=== PATIENT | male | born 1935 | race Caucasian/White ===

== ENCOUNTER 2023-12-06 | Outpatient (CLI) | payer MEDICARE, OTHER | END 2023-12-06 09:20 | disposition home or self-care (01) | DX: Z01.818 Encounter for other preprocedural examination (principal); M16.11 Unilateral primary osteoarthritis, right hip ==

== ENCOUNTER 2023-12-11 05:58 | Observation (INO) | payer MEDICARE, OTHER ==
[2023-12-06 09:45] VITALS: BMI 25.7
[2023-12-11] MEDS ORDERED: Tranexamic Acid 1,000 MG/10 ML VIAL ONE (06:09)
[2023-12-11] MEDS ORDERED: Sodium Chloride 0.9% 100 ML ONE ×3 (06:09→07:43)
[2023-12-11] MEDS ORDERED: Vancomycin (BATCH) 1.5 GM/300 ML BAG ONE (06:09)
[2023-12-11] MEDS ORDERED: fentaNYL PF 100 MCG/2 ML SYRINGE ONE ×2 (06:18→07:12)
[2023-12-11] MEDS ORDERED: Propofol 1,000 MG/100 ML VIAL IV ONE (06:22)
[2023-12-11] MEDS ORDERED: Bupivacaine PF 0.5% 30 ML VIAL ONE (06:24)
[2023-12-11] MEDS ORDERED: CEFAZOLIN 2 GM VIAL ONE (07:00)
[2023-12-11] MEDS ORDERED: Acetaminophen 325 MG TAB PO PRN (07:06)
[2023-12-11] MEDS ORDERED: Promethazine HCl 25 MG/ML VIAL IM PRN ×2 (07:06→08:34)
[2023-12-11] MEDS ORDERED: Ondansetron PF 4 MG/2 ML Vial IVP PRN (07:06)
[2023-12-11] MEDS ORDERED: Zolpidem Tartrate 5 MG TAB PO PRN (07:06)
[2023-12-11] MEDS ORDERED: diphenhydrAMINE 25 MG CAP PO PRN (07:06)
[2023-12-11] MEDS ORDERED: Ropivacaine 0.5% HCl/PF (150 MG/30 ML VIAL) ONE (07:08)
[2023-12-11] MEDS ORDERED: Loratadine 10 MG TAB PO PRN (07:16)
[2023-12-11] MEDS ORDERED: Phenylephrine 10 MG/ML VIAL ONE (07:43)
[2023-12-11] MEDS ORDERED: ePHEDrine Sulfate 50 MG/10 ML VIAL ONE (07:46)
[2023-12-11] MEDS ORDERED: Ondansetron HCl/PF 4 MG/2 ML Vial IVP PRN (08:34)
[2023-12-11] MEDS ORDERED: fentaNYL 50 mcg/mL 1 mL Vial ONE (08:39)
[2023-12-11] MEDS: Multivitamin W/ Minerals 1 TAB PO SCH (11:24)
[2023-12-11] MEDS: Aspirin 81 mg Enteric Coated Tablet PO SCH (11:24)
[2023-12-11] MEDS: Hydrochlorothiazide 25 MG TAB PO SCH (11:25)
[2023-12-11] MEDS: Senokot S 8.6-50 MG TAB PO SCH (11:25)
[2023-12-11] MEDS: Ferrous Gluconate 324 MG TAB PO SCH (11:25)
[2023-12-11] MEDS: traMADol HCl 50 MG TAB PO PRN (12:32)
[2023-12-11] MEDS: HYDROcodone/Acetaminophen 5/325 mg Tablet PO PRN ×2 (14:51→21:11)
[2023-12-11] MEDS: Sodium Chloride 0.9% 1,000 ML IV SCH (15:41)
[2023-12-11] MEDS: CEFAZOLIN 2 GM in Sodium Chloride 0.9% 100 ML IVPB SCH (16:03)
[2023-12-11] MEDS: Ramipril 5 MG CAP PO SCH (20:57)
[2023-12-11] MEDS: Finasteride 5 MG TAB PO SCH (20:57)
[2023-12-11] MEDS: Ezetimibe 10 MG TAB PO SCH (20:57)
[2023-12-11] MEDS: Tamsulosin HCl 0.4 MG CAP PO SCH (20:57)
[2023-12-11] MEDS: Oxybutynin ER 5 MG TAB PO SCH (20:57)
[2023-12-11] MEDS: Atorvastatin Calcium 40 MG TAB PO SCH (20:57)
[2023-12-11] MEDS: traZODone HCl 50 MG TAB PO SCH (20:57)
[2023-12-11] MEDS: Fluticasone Propionate Nasal Spray 16 gm Bottle NASAL SCH (20:58)
[2023-12-12 05:58] LABS: Hematocrit 36.9 % (42.0-52.0); Hemoglobin 12.4 g/dL (14.0-18.0); Mean Corpuscular HGB CONC 33.6 g/dL (32.0-36.0); Mean Corpuscular Hemoglobin 33.8 pg (27.0-31.0); Mean Corpuscular Volume 100.5 fl (78.0-98.0); Mean Platelet Volume 10.5 fL (7.4-10.4); Platelet Count 143 10x3/uL (130-400); RBC Distribution Width 11.8 % (11.5-14.5); Red Blood Cell (RBC) Count 3.67 mill/uL (4.70-6.10); White Blood Cell (WBC) Count 11.7 10x3/uL (4.8-10.8)
[2023-12-12 17:13] VITALS: BP 128/64; TEMP 97.9
== END 2023-12-12 20:15 | disposition home or self-care (01) ==
LOC: SDC 05:58 → SJJU 07:06
PROVIDERS: ADMIT Orthopaedic Surgery; ATTEND Orthopaedic Surgery
PROC: 0SRC0JZ Replacement of Right Knee Joint with Synthetic Substitute, Open Approach (ICD-10-PCS; principal; 2023-12-11)
DX: M16.11 Unilateral primary osteoarthritis, right hip (principal); I10 Essential (primary) hypertension; E78.5 Hyperlipidemia, unspecified; Z88.7 Allergy status to serum and vaccine; Z79.899 Other long term (current) drug therapy
CPT/HCPCS: 27130; 73502; 85027; 97110 ×2; 97116; 97530 ×3; 97535 ×2; C1776; J3010; J3370; 36415; 64450; J0665; J2371; J2704; J2795; J3490; J7050